=== PATIENT | male | born 1960 | race African-American/Black ===

== ENCOUNTER 2024-04-23 19:56 | Emergency (ER) | payer OTHER ==
[~2024-04-23] VITALS: Ht 180.3 cm; Wt 86.2 kg
[2024-04-23 20:30] VITALS: BP 120/66; TEMP 98.2; O2SAT 97
== END 2024-04-23 20:40 ==
LOC: ER 20:04
DX: Z02.89 Encounter for other administrative examinations (principal); I10 Essential (primary) hypertension; E78.5 Hyperlipidemia, unspecified; J45.909 Unspecified asthma, uncomplicated